=== PATIENT | male | born 1950 | race Caucasian/White ===

== ENCOUNTER → 2020-02-10 10:34 | Outpatient (CLI) | payer MEDICARE, SELFPAY ==
[2020-02-10 12:21] LABS: Prostate Specific Ag, Diagnost < 0.064 ng/ml (0.0-4.0)
== END ==
PROVIDERS: Visit Provider Urology
DX: C61 Malignant neoplasm of prostate (principal)
CPT/HCPCS: 36415; 84153

== ENCOUNTER → 2021-02-09 15:16 | Outpatient (CLI) | payer MEDICARE, SELFPAY ==
[2021-02-09 17:45] LABS: Prostate Specific Ag, Diagnost < 0.064 ng/ml (0.0-4.0)
== END ==
PROVIDERS: Visit Provider Urology
DX: C61 Malignant neoplasm of prostate (principal)
CPT/HCPCS: 36415; 84153

== ENCOUNTER → 2022-02-26 10:20 | Outpatient (CLI) | payer MEDICARE, SELFPAY ==
[2022-02-26 11:55] LABS: Prostate Specific Ag, Diagnost 0.081 ng/ml (0.0-4.0)
== END ==
PROVIDERS: Visit Provider Urology
DX: C61 Malignant neoplasm of prostate (principal)
CPT/HCPCS: 36415; 84153